=== PATIENT | male | born 1975 | race Hispanic/Latino ===

== ENCOUNTER 2019-02-03 13:40 | Emergency (ER) | payer SELFPAY ==
--- OUTSIDE RECORDS SUMMARY | 2019-02-03 13:42 | XMS REPORT | Clinical Summary ---
Author Author [facility] Organization [facility] Address Unknown Phone Unavailable Care Team Providers Care Automatic Glove Former Name Role Phone Asked, No Pcp PCP Unavailable Allergies No Known Allergies Medications End Date Status Medication Sig Dispensed Refills Start Date Active ACETAMINOPHEN, BULK, MISC 200 mg every 0 6 (six) hours as needed. Active ibuprofen (ADVIL,MOTRIN) Take 200 mg 0 200 MG tablet by mouth every 6 (six) hours as needed for mild pain. Active ibuprofen (ADVIL,MOTRIN) Take 800 mg 0 800 MG tablet by mouth every 6 (six) hours as needed for mild pain. Active Problems Problem Noted Date Rectal abscess 06/06/2017 Family History Medical History Relation Name Comments Cancer Maternal Grandmother Relation Name Status Comments Maternal Grandmother Social History Date Tobacco Use Types Packs/Day Years Used Current Every Day Smoker Cigarettes 0.25 Smokeless Tobacco: Current User Drinks/Week oz/Week Comments Alcohol Use Yes Sex Assigned at Date Recorded Not on file Industry Job Start Date Occupation Not on file Not on file Not on file Travel End Travel History Travel Start No recent travel history available. 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
--- NOTE | 2019-02-03 15:00 | NUR ---
PATIENT REQUESTING TO LEAVE PRIOR TO TRIAGE, REQUESTING TO WITHDRAW REQUEST FOR A MEDICAL SCREENING EXAM. EDUCATED PATIENT ON THE RISKS OF LEAVING WITHOUT BEING SEEN,VERBALIZED UNDERSTANDING. SIGNED OUT AMA AND AMBULATORY OUT THE THE DEPARTMENT.
== END 2019-02-03 15:00 | disposition short-term general hospital (02) ==
LOC: ER 13:40
DX: R20.0 Anesthesia of skin (principal)